=== PATIENT | female | born 1980 | race Caucasian/White ===

== ENCOUNTER 2021-09-12 18:36 | Emergency (ER) | payer OTHER ==
[~2021-09-12] VITALS: Ht 154.9 cm; Wt 74.8 kg
--- NOTE | 2021-09-12 18:40 | NUR ---
PATIENT AMBULATED TO BED 11.
[2021-09-12 18:42] VITALS: BP 138/88
[2021-09-12] MEDS ORDERED: MORPHINE SULFATE 4 MG/ML SYR IVP ONE (18:55)
[2021-09-12] MEDS ORDERED: ONDANSETRON 4 MG/2 ML VIAL IVP ONE (18:55)
--- NOTE | 2021-09-12 18:55 | NUR ---
41 y/o F BIB self from home c/o epigastric pain x 1 day. Patient A&Ox4, ambulatory, states chest pain that began yesterday that self resolved. Today, patient reports epigastric pain 10/10, sharp/constant, non-radiating pain. Patient denies nausea, vomiting, diarrhea, constipation, back pain, injury, fever, chills. Ibuprofen "4-5 hrs ago" with minor relief to pain. Abdomen soft/round/non-tender to palpation. Last BM: today normal. Bowel sounds normoactive x 4 quadrants. Bed locked in lowest position, side rails x 1, call light in reach. PMH/Sx/Meds: Denies NKA
--- NOTE | 2021-09-12 18:55 | NUR ---
Note undone in EDM - 09/12/21 at 1910 by ALEXSANDRA 41 y/o F BIB self from home c/o epigastric pain x 1 day. Patient A&Ox4, ambulatory, states chest pain that began yesterday that self resolved. Today, patient reports epigastric pain 10/10, sharp/constant, non-radiating pain. Patient denies nausea, vomiting, diarrhea, constipation, back pain, injury, fever, chills. Ibuprofen "4-5 hrs ago" with minor relief to pain. Abdomen soft/round/tender to palpation. Last BM: today normal. Bowel sounds normoactive x 4 quadrants. Bed locked in lowest position, side rails x 1, call light in reach. PMH/Sx/Meds: Denies NKA
--- NOTE | 2021-09-12 18:57 | NUR ---
PT PLACED ON V/S MONITOR AND EKG DONE. ERMD NOTIFIED.
[2021-09-12] MEDS ORDERED: ALUMINUM HYD/MAG/SIMETHICONE 30 ML UDC PO ONE (19:00)
--- NOTE | 2021-09-12 19:10 | NUR ---
US tech at bedside
--- NOTE | 2021-09-12 19:10 | NUR ---
Blood samples and UA handed to CPT Eliana at ER bedside
--- NOTE | 2021-09-12 19:17 | NUR ---
Report and transfer of care endorsed to MARKO Winters.
[2021-09-12 19:20] LABS: BASOPHILS % (AUTO) 0.2 % (0.0-2.0); EOSINOPHILS # (AUTO) 0.1 K/uL (0-0.4); EOSINOPHILS % (AUTO) 0.8 % (0.0-4.0); HEMATOCRIT 40.3 % (36-48); HEMOGLOBIN 13.5 g/dL (12.0-16.0); LYMPHOCYTES # (AUTO) 1.4 K/uL (2.5-16.5); LYMPHOCYTES % (AUTO) 10.5 % (20.5-51.1); MEAN CORPUSCULAR HEMOGLOBIN 28 pg (27-31); MEAN CORPUSCULAR HGB CONC 34 g/dL (33-37); MEAN CORPUSCULAR VOLUME 82.6 fL (80-94); MONOCYTES # (AUTO) 0.3 K/uL (0.8-1.0); MONOCYTES % (AUTO) 2.5 % (1.7-9.3); NEUTROPHILS # (AUTO) 11.2 K/uL (1.8-7.7); PLATELET COUNT (AUTO) 327 K/uL (140-450); RED BLOOD CELL COUNT(AUTO) 4.88 MIL/uL (4.20-5.40); RED CELL DISTRIBUTION WIDTH 14.4 % (11.6-13.7)
[2021-09-12 19:39] LABS: ALBUMIN 3.9 g/dL (3.4-5.0); ANION GAP 14.6 (8-16); CARBON DIOXIDE 28.8 mmol/L (21-32); CREATININE 0.8 mg/dL (0.6-1.3); POTASSIUM 3.4 mmol/L (3.5-5.1); TOTAL BILIRUBIN 0.3 mg/dL (0.0-1.0)
[2021-09-12] MEDS ORDERED: ONDANSETRON 4 MG ODT PO ONE (20:35)
[2021-09-12] MEDS ORDERED: HYDROcodone/APAP 5/325 MG 1 TAB TAB PO ONE (20:35)
[2021-09-12] MEDS ORDERED: ONDA-188 PO (20:38)
[2021-09-12] MEDS ORDERED: ACET-8386 PO (20:38)
[2021-09-12 21:15] VITALS: BP 138/88
--- NOTE | 2021-09-12 21:15 | NUR ---
Patient discharged with v/s stable. Written and verbal after care instructions given and explained. Patient alert, oriented and verbalized understanding of instructions. Ambulatory with steady gait. All questions addressed prior to discharge. ID band removed. Patient advised to follow up with PMD. Rx of NORCO AND ZOFRAN given. Patient educated on indication of medication including possible reaction and side effects. Opportunity to ask questions provided and answered.
== END 2021-09-12 21:15 | disposition home or self-care (01) ==
LOC: MED 18:36
DX: K80.20 Calculus of gallbladder without cholecystitis without obstruction (principal); Z79.899 Other long term (current) drug therapy; Z98.890 Other specified postprocedural states
CPT/HCPCS: 36415; 71045; 76705; 80053; 83690; 83880; 84484; 85025; 93005; 96374; 96375; 99285; J2270; J2405; Q0092; Q0162